=== PATIENT | male | born 1950 | race Caucasian/White ===

== ENCOUNTER 2022-12-25 13:57 | Emergency (ER) | payer MEDICARE, OTHER ==
--- NOTE | 2022-12-25 14:46 | ED ---
General Adult HPI - General Source: patient, RN notes reviewed Mode of arrival: ambulatory Limitations: no limitations <Carter White - Last Filed: 12/25/22 14:45> <Ti Stephenson - Last Filed: 12/25/22 18:26> - General Stated complaint: chest pain Time Seen by Provider: 12/25/22 13:57 - History of Present Illness Initial comments: 72-year-old male presents emergency from via EMS from [place] for evaluation of chest pain. Patient states started today. Patient states it's centralized chest pain but also has Discomfort. (Carter White) Patient had presented for an episode of chest pain which occurred several hours prior to arrival. Patient was seen in triage and laboratory testing, EKG was obtained. Patient denied associated symptoms of vomiting or diaphoresis. He has no known history of coronary artery disease. (Ti Stephenson) - Related Data Allergies Allergy/AdvReac Type Severity Reaction Status Date / Time No Known Allergies Allergy Verified 12/25/22 14:59 Review of Systems ROS Other: All systems not noted in ROS Statement are negative. <Carter White - Last Filed: 12/25/22 14:45> ROS Other: All systems not noted in ROS Statement are negative. <Ti Stephenson - Last Filed: 12/25/22 18:26> ROS Statement: Those systems with pertinent positive or pertinent negative responses have been documented in the HPI. General Exam <Carter White - Last Filed: 12/25/22 14:45> General appearance: alert, in no apparent distress Head exam: Present: atraumatic, normocephalic Eye exam: Present: normal appearance, PERRL ENT exam: Present: normal exam Neck exam: Present: normal inspection. Absent: tenderness, meningismus Respiratory exam: Present: normal lung sounds bilaterally. Absent: respiratory distress, wheezes Cardiovascular Exam: Present: regular rate, normal rhythm GI/Abdominal exam: Present: soft. Absent: distended, guarding Extremities exam: Present: normal inspection, normal capillary refill Neurological exam: Present: alert, oriented X3, CN II-XII intact. Absent: motor sensory deficit Psychiatric exam: Present: normal affect, normal mood Skin exam: Present: warm, dry, intact <Ti Stephenson - Last Filed: 12/25/22 18:26> - General Exam Comments Initial Comments: Visual Physical Exam Vital signs reviewed General: Well-appearing, nontoxic, no acute distress. Head: Normocephalic, atraumatic Eyes: PERRLA, EOMI ENT: Airway patent Chest: Nonlabored breathing Skin: No visual rash, normal skin tone Neuro: Alert and oriented 3 Musculoskeletal: No gross abnormalities (Carter White) Course Vital Signs 12/25/22 12/25/22 14:52 17:33 Temperature 99.3 F Pulse Rate 76 80 Pulse Rate [ 92 Insurance Follow Up Specialist ] Respiratory 18 18 Rate Blood Pressure 151/84 143/86 O2 Sat by Pulse 99 98 Oximetry Medical Decision Making <Carter White - Last Filed: 12/25/22 14:45> - Lab Data Result diagrams: 12/25/22 15:02 12/25/22 15:02 <Ti Stephenson - Last Filed: 12/25/22 18:26> - Medical Decision Making I performed a quick note portion of this chart signed Carter White PA-C (Carter White) Was pt. sent in by a medical professional or institution (CORINNE Ding, LITHOGRAPHING MACHINE OPERATOR, urgent care, hospital, or detention...) When possible be specific @ -No Did you speak to anyone other than the patient for history (EMS, parent, family, police, friend...)? What history was obtained from this source @ -No Did you review nursing and triage notes (agree or disagree)? Why? @ -I reviewed and agree with nursing and triage notes Were old charts reviewed (outside hosp., previous admission, EMS record, old E KG, old radiological studies, urgent care reports/EKG's, detention records)? Report findings @ -No old charts were reviewed Differential Diagnosis (chest pain, altered mental status, abdominal pain women, abdominal pain men, vaginal bleeding, weakness, fever, dyspnea, syncope, headache, dizziness, GI bleed, back pain, seizure, CVA, palpatations, mental hea lth, musculoskeletal)? @ -not applicable EKG interpreted by me (3pts min.). @ -Sinus rhythm rate of 77, KS interval 171, QRS duration 77, QTC 41, no ST segment elevation, T waves are upright. X-rays interpreted by me (1pt min.). @ -No focal pneumonia, no pneumothorax, hyperinflation CT interpreted by me (1pt min.). @ -None done U/S interpreted by me (1pt. min.). @ -None done What testing was considered but not performed or refused? (CT, X-rays, U/S, labs)? Why? @ -None What meds were considered but not given or refused? Why? @ -None Did you discuss the management of the patient with other professionals (professionals i.e. , PA, LITHOGRAPHING MACHINE OPERATOR, lab, RT, psych nurse, director social welfare, spear fisher, teacher, patrol officer, outpatient case manager)? Give summary @ -No Was smoking cessation discussed for >3mins.? @ -No Was critical care preformed (if so, how long)? @ -No Were there social determinants of health that impacted care today? How? (Homelessness, low income, unemployed, alcoholism, drug addiction, transportation, low edu. Level, literacy, decrease access to med. care, nursing home, rehab)? @ -No Was there de-escalation of care discussed even if they declined (Discuss DNR or withdrawal of care, Hospice)? DNR status @ -No What co-morbidities impacted this encounter? (DM, HTN, Smoking, COPD, CAD, Cancer, CVA, ARF, Chemo, Hep., AIDS, mental health diagnosis, sleep apnea, morbid obesity)? @ -[COPD, prior opiate abuse Was patient admitted / discharged? Hospital course, mention meds given and route, prescriptions, significant lab abnormalities, going to OR and other pertinent info. @ -72 -year-old male presenting with an episode of chest discomfort. Symptoms resolved. EKG showed sinus rhythm without ischemic changes. Patient initial laboratory testing is unremarkable including negative troponin. I did repeat a troponin at 3 hours which was again negative. Patient stable for discharge with strict return parameters. Undiagnosed new problem with uncertain prognosis? @ -No Drug Therapy requiring intensive monitoring for toxicity (Heparin, Nitro, Insulin, Cardizem)? @ -No Were any procedures done? @ -No Diagnosis/symptom? @ -[Chest discomfort Acute, or Chronic, or Acute on Chronic? @ -Acute Uncomplicated (without systemic symptoms) or Complicated (systemic symptoms)? @ -default Side effects of treatment? @ -No Exacerbation, Progression, or Severe Exacerbation? @ -No Poses a threat to life or bodily function? How? (Chest pain, [place], [place], pneumonia, PE, COPD, DKA, ARF, appy, cholecystitis, CVA, Diverticulitis, Homicidal, Suicidal, threat to staff... and all critical care pts) @ -[Low risk (RastarajivTi Piotr) - Lab Data Lab Results 12/25/22 12/25/22 12/25/22 Range/Units 15:02 15:02 15:02 WBC 6.6 (3.8-10.6) k/uL RBC 5.11 (4.30-5.90) m/uL Hgb 14.9 (13.0-17.5) gm/dL Hct 46.4 (39.0-53.0) % MCV 90.8 (80.0-100.0) fL MCH 29.2 (25.0-35.0) pg MCHC 32.1 (31.0-37.0) g/dL RDW 13.9 (11.5-15.5) % Plt Count 279 (150-450) k/uL MPV 7.4 Neutrophils % 67 % Lymphocytes % 17 % Monocytes % 8 % Eosinophils % 5 % Basophils % 1 % Neutrophils # 4.4 (1.3-7.7) k/uL Lymphocytes # 1.1 (1.0-4.8) k/uL Monocytes # 0.5 (0-1.0) k/uL Eosinophils # 0.4 (0-0.7) k/uL Basophils # 0.0 (0-0.2) k/uL PT 10.7 (9.0-12.0) sec INR 1.0 (<1.2) APTT 24.4 (22.0-30.0) sec Sodium 137 (137-145) mmol/L Potassium 4.5 (3.5-5.1) mmol/L Chloride 103 (98-107) mmol/L Carbon Dioxide 24 (22-30) mmol/L Anion Gap 10 mmol/L BUN 15 (9-20) mg/dL Creatinine 0.68 (0.66-1.25) mg/dL Est GFR (CKD-EPI)AfAm >90 (>60 ml/min/1.73 sqM) Est GFR (CKD-EPI)NonAf >90 (>60 ml/min/1.73 sqM) Glucose 101 H (74-99) mg/dL Calcium 9.5 (8.4-10.2) mg/dL Magnesium 2.0 (1.6-2.3) mg/dL Total Bilirubin 0.5 (0.2-1.3) mg/dL AST 32 (17-59) U/L ALT 20 (4-49) U/L Alkaline Phosphatase 76 (38-126) U/L Troponin I (0.000-0.034) ng/mL Total Protein 7.9 (6.3-8.2) g/dL Albumin 4.2 (3.5-5.0) g/dL 12/25/22 12/25/22 Range/Units 15:02 17:14 WBC (3.8-10.6) k/uL RBC (4.30-5.90) m/uL Hgb (13.0-17.5) gm/dL Hct (39.0-53.0) % MCV (80.0-100.0) fL MCH (25.0-35.0) pg MCHC (31.0-37.0) g/dL RDW (11.5-15.5) % Plt Count (150-450) k/uL MPV Neutrophils % % Lymphocytes % % Monocytes % % Eosinophils % % Basophils % % Neutrophils # (1.3-7.7) k/uL Lymphocytes # (1.0-4.8) k/uL Monocytes # (0-1.0) k/uL Eosinophils # (0-0.7) k/uL Basophils # (0-0.2) k/uL PT (9.0-12.0) sec INR (<1.2) APTT (22.0-30.0) sec Sodium (137-145) mmol/L Potassium (3.5-5.1) mmol/L Chloride (98-107) mmol/L Carbon Dioxide (22-30) mmol/L Anion Gap mmol/L BUN (9-20) mg/dL Creatinine (0.66-1.25) mg/dL Est GFR (CKD-EPI)AfAm (>60 ml/min/1.73 sqM) Est GFR (CKD-EPI)NonAf (>60 ml/min/1.73 sqM) Glucose (74-99) mg/dL Calcium (8.4-10.2) mg/dL Magnesium (1.6-2.3) mg/dL Total Bilirubin (0.2-1.3) mg/dL AST (17-59) U/L ALT (4-49) U/L Alkaline Phosphatase (38-126) U/L Troponin I <0.012 <0.012 (0.000-0.034) ng/mL Total Protein (6.3-8.2) g/dL Albumin (3.5-5.0) g/dL Disposition <Carter White - Last Filed: 12/25/22 14:45> Is patient prescribed a controlled substance at d/c from ED?: No Time of Disposition: 18:25 <Ti Stephenson - Last Filed: 12/25/22 18:26> Clinical Impression: Atypical chest pain, Chest pain Disposition: HOME SELF-CARE Condition: Fair Instructions (If sedation given, give patient instructions): Chest Pain (ED) Referrals: Nonstaff,Physician [Primary Care Provider] - 1-2 days
[2022-12-25 15:34] LABS: Basophils % (A) 1 %; Eosinophils # (A) 0.4 k/uL (0-0.7); Eosinophils % (A) 5 %; HCT 46.4 % (39.0-53.0); HGB 14.9 gm/dL (13.0-17.5); Lymphocytes # (A) 1.1 k/uL (1.0-4.8); Lymphocytes % (A) 17 %; MCH 29.2 pg (25.0-35.0); MCHC 32.1 g/dL (31.0-37.0); MCV 90.8 fL (80.0-100.0); Mean Platelet Volume 7.4; Monocytes # (A) 0.5 k/uL (0-1.0); Monocytes % (A) 8 %; Neutrophils # (A) 4.4 k/uL (1.3-7.7); Neutrophils % (A) 67 %; Platelet Count 279 k/uL (150-450); RBC 5.11 m/uL (4.30-5.90); RDW 13.9 % (11.5-15.5); WBC 6.6 k/uL (3.8-10.6)
[2022-12-25 15:46] LABS: Partial Thromboplastin Time 24.4 sec (22.0-30.0); Prothrombin Time 10.7 sec (9.0-12.0)
[2022-12-25 15:49] LABS: ALT 20 U/L (4-49); African American GFR (CKD) >90 (>60 ml/min/1.73 sqM); Albumin 4.2 g/dL (3.5-5.0); Anion Gap 10 mmol/L; Blood Urea Nitrogen 15 mg/dL (9-20); Calcium 9.5 mg/dL (8.4-10.2); Carbon Dioxide 24 mmol/L (22-30); Chloride 103 mmol/L (98-107); Glucose 101 mg/dL (74-99); Non-African American GFR(CKD) >90 (>60 ml/min/1.73 sqM); Sodium 137 mmol/L (137-145); Total Bilirubin 0.5 mg/dL (0.2-1.3); Total Protein 7.9 g/dL (6.3-8.2)
--- NOTE | 2022-12-25 15:53 | XR ---
EXAMINATION TYPE: XR chest 2V DATE OF EXAM: 12/25/2022 COMPARISON: None HISTORY: 72-year-old male with chest pain TECHNIQUE: PA and lateral views FINDINGS: The cardiomediastinal silhouette, aorta, and pulmonary vasculature are within normal limits. Mild hyp erinflation. Lungs and pleural spaces are clear. IMPRESSION: Hyperinflation may reflect underlying emphysema. Clinically correlate. Otherwise, no acute cardiopulm onary process.
[2022-12-25 16:08] LABS: AST 32 U/L (17-59); Alkaline Phosphatase 76 U/L (38-126); Potassium 4.5 mmol/L (3.5-5.1)
[2022-12-25 16:10] VITALS: RESP 18
[2022-12-25 17:41] VITALS: PULSE 80
[2022-12-25 18:55] VITALS: BP 141/89; TEMP 97.4
== END 2022-12-25 18:54 | disposition home or self-care (01) ==
LOC: EC 13:57
DX: R07.89 Other chest pain (principal)
CPT/HCPCS: 36415; 71046; 80053; 83735; 84484; 85025; 85610; 85730; 93005; 99285